=== PATIENT | male | born 1995 | race Hispanic/Latino ===

== ENCOUNTER 2020-10-05 13:31 | Emergency (ER) | payer SELFPAY ==
[~2020-10-05] VITALS: Ht 162.6 cm; Wt 86.4 kg
[2020-10-05 14:00] LABS: HEMATOCRIT 47.1 % (39.0-50.0); HEMOGLOBIN 16.5 g/dl (14.0-18.0); IMMATURE GRANULOCYTES 0.8 % (0.0-5.0); MEAN CELL VOLUME 89.7 fL CALC (80.0-100.0); MEAN CORPUSCULAR HGB 31.4 pG CALC (26.0-32.0); NEUT# 10.59 thou/uL (1.82-7.42); RED BLOOD COUNT 5.25 mill/uL (4.70-6.10); RED CELL DISTRI WIDTH 13.3 % (11.5-15.5)
[2020-10-05 14:19] LABS: ALBUMIN 5.3 g/dL (3.2-5.0); ALKALINE PHOSPHATASE 115 u/l (38-126); ANION GAP 23 (6-22 (CALC)); BILIRUBIN, TOTAL 1.2 mg/dL (0.0-1.4); BUN 19 mg/dL (9-20); BUN/CREATININE RATIO 13 (12-20 (CALC)); CARBON DIOXIDE 15 mmol/l (22-30); CHLORIDE 102 mmol/l (95-108); CREATININE 1.4 mg/dL (0.7-1.3); GFR > 60 ML/MIN (>=60 (CALC)); GFR FOR AFR.AMER. > 60 ML/MIN (>=60 (CALC)); POTASSIUM 3.7 mmol/l (3.5-5.1); SGOT/AST 47 u/l (17-59); SODIUM 137 mmol/l (137-146); TOTAL PROTEIN 9.6 g/dL (6.3-8.2)
[2020-10-05 14:29] LABS: MYOGLOBIN 119 ng/mL (0 - 121)
[2020-10-05 14:53] LABS: URINE BLOOD DIPSTICK TRACE-INTACT (NEGATIVE); URINE COLOR YELLOW; URINE GLUCOSE - DIPSTICK NEGATIVE (NEGATIVE); URINE KETONE >=80 mg/dL (NEGATIVE); URINE LEUK ESTERASE NEGATIVE (NEGATIVE); URINE PROTEIN - DIPSTICK 100 mg/dL (NEG-TRACE); URINE SPECIFIC GRAVITY 1.025; URINE UROBILINOGEN - DIPSTICK 0.2 E.U./dL (0.2)
[2020-10-05 15:00] LABS: URINE BILIRUBIN - DIPSTICK SMALL (NEGATIVE); URINE NITRITE - DIPSTICK NEGATIVE (Negative)
[2020-10-05 15:02] LABS: URINE HYALINE CAST FEW lpf (NONE-RARE); URINE RBC 0-2 RBC/hpf (0-5); URINE SQUAMOUS EPITHELIAL CELL FEW EPI/hpf (0-FEW)
[2020-10-05] MEDS ORDERED: NAPROXEN500 MG PO (17:42)
[2020-10-05 17:48] VITALS: BP 130/79
== END 2020-10-05 17:56 | disposition home or self-care (01) | DRG 313 ==
LOC: ED 13:31
PROVIDERS: Emergency Medicine
DX: R07.89 Other chest pain (principal); F41.9 Anxiety disorder, unspecified; F14.10 Cocaine abuse, uncomplicated

== ENCOUNTER 2024-01-08 12:00 | Emergency (ER) | payer SELFPAY ==
[~2024-01-08] VITALS: Ht 162.6 cm; Wt 83.9 kg
[~2024-01-08 12:00] MED LIST: NAPROXEN500 MG PO
[2024-01-08] MEDS ORDERED: KETOROLAC TROMETHAMINE 30 MG/ML SDV IM ONE (13:05)
[2024-01-08] MEDS ORDERED: NAPROXEN500 MG PO (13:07)
[2024-01-08] MEDS ORDERED: PENICILLN VK500 MG PO (13:07)
[2024-01-08] MEDS ORDERED: TRAMADOL HYDROC50 M1 PO (13:07)
== END 2024-01-08 13:23 | disposition home or self-care (01) | DRG 159 ==
LOC: ED 12:00
DX: K04.7 Periapical abscess without sinus (principal); K02.9 Dental caries, unspecified; Z72.0 Tobacco use

== ENCOUNTER 2024-03-15 13:26 | Emergency (ER) | payer SELFPAY ==
[~2024-03-15] VITALS: Ht 162.6 cm; Wt 86.1 kg
[2024-03-15] VITALS (15 sets, daily range): BP systolic 117–140; BP diastolic 79–98
[~2024-03-15 13:26] MED LIST changes: +PENICILLN VK500 MG PO; +TRAMADOL HYDROC50 M1 PO
[2024-03-15] MEDS ORDERED: ONDANSETRON HCl 4 MG/2 ML SDV IV ONE ×2 (13:55→14:05)
[2024-03-15] MEDS ORDERED: SODIUM CHLORIDE 0.9% 1,000 ML IV ONE ×3 (13:55→14:05)
[2024-03-15] MEDS ORDERED: KETOROLAC TROMETHAMINE 15 MG/ML SDV IV ONE (14:05)
[2024-03-15] MEDS ORDERED: ISOVUE-300 (Iopamidol) 100 ML SDV IV ONE (14:05)
[2024-03-15 14:20] LABS: BASO% 0.1 % (0-3); EOS% 1.9 % (0-8); HEMATOCRIT 52.9 % (39.0-50.0); HEMOGLOBIN 17.7 g/dl (14.0-18.0); IMMATURE GRANULOCYTES 0.4 % (0.0-5.0); LYMPH% 18.6 % (15-41); MEAN CELL VOLUME 93.8 fL CALC (80.0-100.0); MEAN CORPUSCULAR HGB 31.4 pG CALC (26.0-32.0); MEAN CORPUSCULAR HGB CONC 33.5 g/dL CAL (32.0-36.0); MONO% 4.9 % (2-13); NEUT# 7.58 thou/uL (1.82-7.42); NEUT% 74.1 % (42-76); RED BLOOD COUNT 5.64 mill/uL (4.70-6.10); RED CELL DISTRI WIDTH 12.9 % (11.5-15.5)
[2024-03-15 14:34] LABS: ALBUMIN 5.2 g/dL (3.2-5.0); BILIRUBIN, TOTAL 0.7 mg/dL (0.2-1.3); POTASSIUM 4.6 mmol/l (3.5-5.1)
[2024-03-15] MEDS ORDERED: ZOFRAN4 MG/TAB PO (16:28)
[2024-03-15] MEDS ORDERED: IMODIUM A-D2 M3 PO (16:28)
== END 2024-03-15 17:02 | disposition home or self-care (01) | DRG 392 ==
LOC: ED 13:26
PROVIDERS: Family Medicine
DX: R11.2 Nausea with vomiting, unspecified (principal); R19.7 Diarrhea, unspecified; F17.210 Nicotine dependence, cigarettes, uncomplicated
CPT/HCPCS: J1885; J2405; Q9967